=== PATIENT | male | born 1945 | race Two or more races ===

== ENCOUNTER → 2018-05-13 | Outpatient (CLI) | payer OTHER ==
--- NOTE | 2018-05-13 16:50 | Diagnostic Imaging Report ---
Exam: Bilateral ankles, 3 views each History: Pain Comparison: None. Findings: Right: No acute, displaced fracture or dislocation. Tibial plafond and talar dome are intact. Ankle mortise is maintained. Minimal degenerative posterior calcaneal spur. Soft tissues are unremarkable. Left: No acute, displaced fracture or dislocation. Tibial plafond and talar dome are intact. Ankle mortise is well-maintained. Mild joint space narrowing along the medial compartment. Minimal degenerative plantar and posterior calcaneal spur. impression: No acute osseous abnormality. Mild degenerative bilateral calcaneal spur. Signed by: Dr. Baljeet Correa M.D. on 05/13/2018 4:47 PM
== END ==
LOC: RAD 16:05
DX: M25.572 Pain in left ankle and joints of left foot (principal); M25.571 Pain in right ankle and joints of right foot